=== PATIENT | female | born 1955 | race Hispanic/Latino ===

== ENCOUNTER 2019-11-07 12:09 | Emergency (ER) | payer MEDICARE ==
[2019-11-07 12:33] VITALS: BP 143/73
--- NOTE | 2019-11-07 13:09 | Emergency Department Report ---
HPI - General Chief Complaint: Altered Mental Status Time Seen by Provider: 11/07/19 12:23 - HPI HPI: Room 9 The patient is a 64-year-old female present with a chief complaint of altered mental status. Per family the patient has been behaving in a confused manner over the past 2 days. The patient believes she was brought to the emergency department because she had a seizure. Patient states she takes Dilantin and has been compliant. The patient is not oriented to her current location. There is no family at bedside ED Past Medical Hx - Past Medical History Hx Hypertension: Yes Hx Diabetes: Yes Hx Seizures: Yes - Surgical History Past Surgical History?: No - Family History Family history: no significant - Social History Smoking Status: Current Every Day Smoker Substance Use Type: Alcohol ED Review of Systems ROS: Stated complaint: CONFUSION Other details as noted in HPI Constitutional: no symptoms reported Physical Exam - Physical Exam Vital Signs: Vital Signs 11/07/19 12:32 Temperature 98.8 F Pulse Rate 88 Respiratory 19 Rate Blood Pressure 143/73 [Left] O2 Sat by Pulse 98 Oximetry Physical Exam: GENERAL: The patient is well-developed well-nourished female lying on stretcher not appearing to be in acute distress. [] HEENT: Normocephalic. Atraumatic. Extraocular motions are intact. Patient has moist mucous membranes. NECK: Supple. Trachea midline CHEST/LUNGS: Clear to auscultation. There is no respiratory distress noted. HEART/CARDIOVASCULAR: Regular. There is no tachycardia. There is no gallop rub or murmur. ABDOMEN: Abdomen is soft, nontender. Patient has normal bowel sounds. There is no abdominal distention. SKIN: There is no rash. There is no edema. There is no diaphoresis. NEURO: The patient is awake, alert, and oriented to self only. The patient is cooperative. The patient has no focal neurologic deficits. The patient has normal speech. Cranial nerves II through XII grossly intact MUSCULOSKELETAL: There is no evidence of acute injury. ED Course Vital Signs 11/07/19 12:32 Temperature 98.8 F Pulse Rate 88 Respiratory 19 Rate Blood Pressure 143/73 [Left] O2 Sat by Pulse 98 Oximetry ED Medical Decision Making - Lab Data Result diagrams: 11/07/19 12:56 11/07/19 13:04 Laboratory Tests 11/07/19 11/07/19 11/07/19 12:56 12:56 13:04 WBC 8.3 RBC 4.97 Hgb 11.8 Hct 37.6 MCV 76 L MCH 24 L MCHC 31 RDW 14.8 Plt Count 379 Lymph % (Auto) 11.4 L [place] % (Auto) 7.4 H Eos % (Auto) 0.1 Baso % (Auto) 0.4 Lymph # 0.9 L [place] # 0.6 Eos # 0.0 Baso # 0.0 Seg Neutrophils % 80.7 H Seg Neutrophils # 6.7 Sodium 144 Potassium 3.6 Chloride 103.5 Carbon Dioxide 20 L Anion Gap 24 BUN 12 Creatinine 1.1 Estimated GFR 50 BUN/Creatinine Ratio 11 Glucose 117 H Calcium 9.9 Magnesium 2.20 Total Bilirubin 0.40 AST 52 H ALT 17 Alkaline Phosphatase 140 H Ammonia 37.0 CK-MB (CK-2) 12.7 H Troponin T < 0.010 Total Protein 8.3 H Albumin 4.7 Albumin/Globulin Ratio 1.3 TSH Free T4 Phenytoin Plasma/Serum Alcohol 11/07/19 11/07/19 11/07/19 13:04 13:04 13:04 WBC RBC Hgb Hct MCV MCH MCHC RDW Plt Count Lymph % (Auto) [place] % (Auto) Eos % (Auto) Baso % (Auto) Lymph # [place] # Eos # Baso # Seg Neutrophils % Seg Neutrophils # Sodium Potassium Chloride Carbon Dioxide Anion Gap BUN Creatinine Estimated GFR BUN/Creatinine Ratio Glucose Calcium Magnesium Total Bilirubin AST ALT Alkaline Phosphatase Ammonia CK-MB (CK-2) Troponin T Total Protein Albumin Albumin/Globulin Ratio TSH 0.439 Free T4 1.28 Phenytoin 1.4 L Plasma/Serum Alcohol < 0.01 - EKG Data -: EKG Interpreted by Me EKG shows normal: sinus rhythm Rate: normal - EKG Data When compared to previous EKG there are: previous EKG unavailable Interpretation: other (No ischemic changes seen) - Radiology Data Radiology results: report reviewed (CT head), image reviewed (CT head) Findings [facility] [address] [place] [address] Cat Scan Report Signed Patient: CASPER KEANE MR#: [id number] : 1955 Acct:[id number] Age/Sex: 64 / F ADM Date: 11/07/19 Loc: ED Attending Dr: Ordering Physician: MAMI MOSLEY MD Date of Service: 11/07/19 Procedure(s): CT head/brain wo con Accession Number(s): [id number] cc: MAMI MOSLEY MD NONENHANCED CT SCAN OF THE HEAD: INDICATION / CLINICAL INFORMATION: 64 years Female; Altered mental status. TECHNIQUE: Routine CT head without contrast. All CT scans at this location are performed using CT dose reduction for ALARA by means of automated exposure control. COMPARISON: None. FINDINGS: BRAIN / INTRACRANIAL CONTENTS: No acute hemorrhage, mass effect, midline shift, hydrocephalus, or ac [place], large territorial infarct. No chronic infarct or focal atrophy. Normal brain volume and ventricular/sulcal size for age. No significant white matter abnormality. CRANIOCERVICAL JUNCTION: No significant abnormality. ORBITS: No significant abnormality of visualized orbits. SINUSES / MASTOIDS: Mucosal disease seen in the left frontal sinus, left anterior ethmoid air cells, left sphenoid sinus and both maxillary sinuses. ADDITIONAL FINDINGS: None. IMPRESSION: No acute parenchymal lesion in the brain. Signer Name: Rosendo Salvador MD Signed: 11/07/2019 1:08 PM Workstation Name: [id number] Transcribed By: BS Dictated By: Rosendo Chavez MD Electronically Authenticated By: Rosendo Chavez MD Signed Date/Time: 11/07/19 1308 DD/ 1304 TD/TT: - Differential Diagnosis Altered mental status Critical care attestation.: If time is entered above; I have spent that time in minutes in the direct care of this critically ill patient, excluding procedure time. ED Disposition Clinical Impression: Altered mental status, Headache Disposition: OP ADMIT IP TO THIS HOSP Is pt being admited?: Yes Does the pt Need Aspirin: Yes Condition: Fair Time of Disposition: 14:13 (Hospitalist paged (Dr Holden))
--- NOTE | 2019-11-07 13:12 | Cat Scan Report ---
NONENHANCED CT SCAN OF THE HEAD: INDICATION / CLINICAL INFORMATION: 64 years Female; Altered mental status. TECHNIQUE: Routine CT head without contrast. All CT scans at this location are performed using CT dos e reduction for ALARA by means of automated exposure control. COMPARISON: None. FINDINGS: BRAIN / INTRACRANIAL CONTENTS: No acute hemorrhage, mass effect, midline shift, hydrocephalus, or ac [place], large territorial infarct. No chronic infarct or focal atrophy. Normal brain volume and ventricu lar/sulcal size for age. No significant white matter abnormality. CRANIOCERVICAL JUNCTION: No significant abnormality. ORBITS: No significant abnormality of visualized orbits. SINUSES / MASTOIDS: Mucosal disease seen in the left frontal sinus, left anterior ethmoid air cells, left sphenoid sinus and both maxillary sinuses. ADDITIONAL FINDINGS: None. IMPRESSION: No acute parenchymal lesion in the brain. Signer Name: Rosendo Salvador MD Signed: 11/07/2019 1:08 PM Workstation Name: [id number]
[2019-11-07 13:37] LABS: Basophils % (Auto) 0.4 % (0.0-1.8); Eosinophils % (Auto) 0.1 % (0.0-4.3); Hematocrit 37.6 % (30.3-42.9); Hemoglobin 11.8 gm/dl (10.1-14.3); Lymphocytes # (Auto) 0.9 K/mm3 (1.2-5.4); Lymphocytes % (Auto) 11.4 % (13.4-35.0); Mean Corpuscular HGB Conc 31 % (30-34); Mean Corpuscular Volume 76 fl (79-97); Monocytes # (Auto) 0.6 K/mm3 (0.0-0.8); Monocytes % (Auto) 7.4 % (0.0-7.3); Platelet Count 379 K/mm3 (140-440); Red Blood Count 4.97 M/mm3 (3.65-5.03); Red Cell Distribution Width 14.8 % (13.2-15.2)
[2019-11-07 13:57] LABS: Creatine Kinase MB 12.7 ng/mL (0.0-4.0)
[2019-11-07 14:01] LABS: Alanine Aminotransferase 17 units/L (7-56); Albumin 4.7 g/dL (3.9-5); BUN/Creatinine Ratio 11; Blood Urea Nitrogen 12 mg/dL (7-17); Calcium 9.9 mg/dL (8.4-10.2); Hemolysis Index 0
[2019-11-07] MEDS ORDERED: BUTALB/ACETAMINOPHEN/CAFFEINE TAB PO ONE (14:02)
[2019-11-07 14:08] LABS: Free T4 (Free Thyroxine) 1.28 ng/dL (0.76-1.46)
[2019-11-07] MEDS ORDERED: FOSPHENYTOIN 1,000 MG.PE in SODIUM CHLORIDE 0.9% 100 ML IV ONE (14:10)
[2019-11-07] MEDS ORDERED: SODIUM CHLORIDE 0.9% 1000 ML 1,000 ML IV ONE (16:00)
--- NOTE | 2019-11-07 16:16 | Event Note ---
Date: 11/07/19 62-year-old female with hypertension and seizure disorder, nicotine dependence presents to ED for evaluation. Patient states that she thinks she had a seizure. Patient transported to [facility] via EMS service patient patient seen and evaluated on in the emergency department upon arrival. Patient resting comfortably without neurologic deficit. Upon further questioning patient reports history of seizure disorder. No seizure activity witnessed by EMS or ED staff. Patient medically optimized and back to usual state of health. Patient instructed to resume Keppra therapy as prescribed by her primary care physician. Patient struck to follow-up with PCP within 3 to 5 days, and to follow-up with neurology as needed for supportive care. Patient denies fever, chills, chest pain, palpitation, syncope, weakness, skin rash or prolonged ill contacts. Patient discharged home. Physical Exam: GENERAL: The patient is well-developed well-nourished female lying on stretcher not appearing to be in acute distress. [] HEENT: Normocephalic. Atraumatic. Extraocular motions are intact. Patient has moist mucous membranes. NECK: Supple. Trachea midline CHEST/LUNGS: Clear to auscultation. There is no respiratory distress noted. HEART/CARDIOVASCULAR: Regular. There is no tachycardia. There is no gallop rub or murmur. ABDOMEN: Abdomen is soft, nontender. Patient has normal bowel sounds. There is no abdominal distention. SKIN: There is no rash. There is no edema. There is no diaphoresis. NEURO: The patient is awake, alert, and oriented to self only. The patient is cooperative. The patient has no focal neurologic deficits. The patient has normal speech. Cranial nerves II through XII grossly intact MUSCULOSKELETAL: There is no evidence of acute injury.
[2019-11-07] MEDS ORDERED: SODIUM BICARB 8.4% 50 MEQ/50 ML VIAL IV ONE (17:00)
== END 2019-11-07 17:18 | disposition admitted as inpatient to this hospital (09) ==
LOC: ED 12:09
DX: R41.82 Altered mental status, unspecified (principal); R51 Headache; F17.200 Nicotine dependence, unspecified, uncomplicated; E11.9 Type 2 diabetes mellitus without complications; Z86.69 Personal history of other diseases of the nervous system and sense organs; Z88.8 Allergy status to other drugs, medicaments and biological substances
CPT/HCPCS: 36415; 70450; 80053; 80185; 82140; 82550; 82553; 83735; 84439; 84443; 84484; 85025; 93005; 93010; 96365; 96376; 99284; J7030; Q2009; 80320; G0480